=== PATIENT | male | born 1950 | race Caucasian/White ===

== ENCOUNTER → 2018-11-05 | Outpatient (CLI) | payer OTHER ==
--- NOTE | 2018-11-05 15:39 | US ---
EXAM DESCRIPTION: Soft Tissue,Extremity: ULTRASOUND. CLINICAL HISTORY: 67 years Male PAIN IN LEFT FOOT. Struck with wakeboard on the dorsum of the foot. Normal radiographs. COMPARISON: None Available. TECHNIQUE: Transcutaneous scanning: Peace-scale and Doppler modes. FINDINGS: Irregularity of the subcutaneous adipose tissue with a hypoechoic region which may represent a hematoma. No definite mass. Not vascular. Extensor muscle under the subcutaneous layer minimally heterogeneous but no mass or fluid. No dominant solid mass or distinct cyst. IMPRESSION: Subcutaneous hematoma, nonhemorrhagic. Electronically signed by: Kurtis Avalos MD 11/05/2018 3:37 PM CDT
== END ==
LOC: US 14:50
PROVIDERS: ATTEND Nurse Practitioner Family
DX: M79.672 Pain in left foot (principal); S90.32XA Contusion of left foot, initial encounter

== ENCOUNTER → 2018-12-04 | Outpatient (CLI) | payer OTHER | LOC: GMAJ 10:38 | PROVIDERS: ATTEND Family Medicine | DX: E29.1 Testicular hypofunction (principal); E78.00 Pure hypercholesterolemia, unspecified ==

== ENCOUNTER → 2020-03-03 | Outpatient (CLI) | payer OTHER | LOC: GMAJ 11:04 | PROVIDERS: ATTEND Family Medicine | DX: E29.1 Testicular hypofunction (principal) ==